=== PATIENT | female | born 1960 | race Hispanic/Latino ===

== ENCOUNTER 2018-12-20 11:15 | Emergency (ER) | payer OTHER ==
[~2018-12-20] VITALS: Ht 165.1 cm; Wt 81.7 kg
[2018-12-20] MEDS ORDERED: LISINOPRIL5 MG PO (12:01)
[2018-12-20] MEDS ORDERED: GLUCOPHAGE500 MG PO (12:02)
[2018-12-20] MEDS ORDERED: GLIPIZIDE5 MG PO (12:03)
[2018-12-20] MEDS ORDERED: GABAPENTIN100 MG (12:04)
[2018-12-20] MEDS ORDERED: ULTRAM50 MG PO (14:31)
== END 2018-12-20 15:25 | disposition home or self-care (01) ==
LOC: ED 11:15
DX: S39.012A Strain of muscle, fascia and tendon of lower back, initial encounter (principal); I10 Essential (primary) hypertension; Z79.4 Long term (current) use of insulin; Z79.899 Other long term (current) drug therapy; W18.30XA Fall on same level, unspecified, initial encounter
CPT/HCPCS: 72125; 72128; 72131; 96374; 96375; 99284-25; J1885; J2270; J2405